=== PATIENT | male | born 1990 | race Caucasian/White ===

== ENCOUNTER 2016-11-13 01:37 | Emergency (ER) | payer SELFPAY ==
--- NOTE | 2016-11-13 02:11 | ER Document Report ---
ED General - General TRAVEL OUTSIDE OF THE [place] IN LAST 30 DAYS: No - General Chief Complaint: Insect Bite Stated Complaint: POSSIBLE INSECT BITE Time Seen by Provider: 11/13/16 02:00 - HPI Notes: Patient is a 26-year-old male who presents to the ED complaining of an insect bite to the left forehead just above his eye 3 days. Patient states that the tissue has become darker and he is noticed some redness and swelling around the area. Patient states that his eye also became red and he has a burning and pain to the eye. Patient has noticed that his left eyelid and supraorbital area is red and swollen as well. He has tried some [id number] meds with minimal relief. He denies any history of MRSA. The pain does not radiate. He still eating and drinking without any difficulties. He denies any drug allergies or significant past medical history otherwise. He has not noticed any discharge. Denies any headache, fever, head injury, neck pain/stiffness, changes in vision, URI, sore throat, chest pain, palpitations, syncope, cough, shortness of breath, wheeze, dyspnea, abdominal pain, nausea/vomiting/diarrhea, urinary retention, dysuria, hematuria, numbness/tingling, or other rash. Denies any recent illness or travel. (MADELIN BOGGS) - Related Data Allergies/Adverse Reactions: No Known Allergies Allergy (Verified 01/19/15 14:02) Past Medical History - Social History Smoking Status: Current Every Day Smoker Family History: Reviewed & Not Pertinent Renal/ Medical History: Denies: Hx Peritoneal Dialysis Psychiatric Medical History: Reports: Hx Attention Deficit Hyperactivity Disorder - Immunizations Immunizations up to date: Yes Hx Diphtheria, Pertussis, Tetanus Vaccination: Yes - Review of Systems - Review of Systems Notes: REVIEW OF SYSTEMS: CONSTITUTIONAL : Denies fever, chills, or sweats. Denies recent illness. EENT: Denies eye, ear, throat, or mouth pain or symptoms. Denies nasal or sinus congestion or discharge. Denies throat, tongue, or mouth swelling or difficulty swallowing. CARDIOVASCULAR: Denies chest pain. Denies palpitations or racing or irregular heart beat. Denies ankle edema. RESPIRATORY: Denies cough, cold, or chest congestion. Denies shortness of breath, difficulty breathing, or wheezing. GASTROINTESTINAL: Denies abdominal pain or distention. Denies nausea, vomiting , or diarrhea. Denies blood in vomitus, stools, or per rectum. Denies black, tarry stools. Denies constipation. GENITOURINARY: Denies difficulty urinating, painful urination, burning, frequency, blood in urine, or discharge. MUSCULOSKELETAL: Denies back or neck pain or stiffness. Denies joint pain or swelling. SKIN: see hpi NEUROLOGICAL: Denies confusion or altered mental status. Denies passing out or loss of consciousness. Denies dizziness or lightheadedness. Denies headache. Denies weakness or paralysis or loss of use of either side. Denies problems with gait or speech. Denies sensory loss, numbness, or tingling. ALL OTHER SYSTEMS REVIEWED AND NEGATIVE. Dictation was performed using [employer] voice recognition software (MADELIN BOGGS) Physical Exam - Vital signs Vitals: Temp Pulse Resp BP Pulse Ox 98.8 F 86 18 137/84 H 97 11/13/16 01:43 11/13/16 01:43 11/13/16 01:43 11/13/16 01:43 11/13/16 01:43 Notes: PHYSICAL EXAMINATION: GENERAL: Well-appearing, well-nourished and in no acute distress. HEAD: Atraumatic, normocephalic. EYES: Pupils equal round and reactive to light, extraocular movements intact, sclera anicteric, left conjunctiva injected without obvious discharge. + mild swelling to the left eyelid and and supraorbital area. ENT: EAC clear b/l. TM's intact b/l without erythema, fluid, or perforation. Nares patent and without discharge. oropharynx clear without exudates. No tonsilar hypertrophy or erythema. Moist mucous membranes. No sinus tenderness. NECK: Normal range of motion, supple without lymphadenopathy. No rigidity/ meningismus. LUNGS: Breath sounds clear to auscultation bilaterally and equal. No wheezes rales or rhonchi. HEART: Regular rate and rhythm without murmurs, rubs, gallops. NEUROLOGICAL: Cranial nerves grossly intact. Normal speech, normal gait. Normal sensory, motor exams PSYCH: Normal mood, normal affect. SKIN: inflamed, erythemic, 1.5cm x1cm cellulitic area with minimal necrotic tissue in the center. + tenderness. No fluid pocket or streaks. No discharge. ( MADELIN BGOGS) Course - Re-evaluation Re-evalutation: 11/13/16 03:12 Patient is an afebrile, well-hydrated, 26yo male who presents to the ED with a lt forehead cellulitis, left conjunctivitis, and left corneal abrasion. Vitals stable. Flourescein was utilized to further investigate his conjunctivitis which found the abrasion, but no ulceration or other uptake noted. Dr. Palomo ([facility]) was also in the ED and visualized the patient's infection/ eye. I will cover him with bactrim/keflex, polytrim, and ketorolac drops to use as directed. Low suspicion for any acute glaucoma, ulceration, retained corneal or lid foreign body, orbital cellulitis, penetrating globe injury, retinal detachment, sepsis, or meningitis. Patient is aware that his condition can change from initial presentation and he needs to monitor symptoms closely and seek medical attention if any acute changes. Conservative measures otherwise for symptoms. Recheck with your PCM this week. Consider consult with Ophthalmology for ongoing/worsening symptoms return to the ED with any worsening/concerning symptoms otherwise as reviewed in discharge. Patient is in agreement. (MADELIN BOGGS) - Vital Signs Vital signs: Temp Pulse Resp BP Pulse Ox 98.6 F 92 18 140/90 H 98 11/13/16 03:57 11/13/16 03:57 11/13/16 03:57 11/13/16 03:57 11/13/16 03:57 Procedures - Eye Procedure Left Time completed: 03:10 Eye Irrigated w/ Saline (ccs): 10 Alcaine Drops Administered: Yes - tetracaine Fluorescein applied: Left Slit lamp used: No - Eye Procedure Left Notes: 11/13/16 03:17 see course. (MADELIN BOGGS) Discharge - Discharge Clinical Impression: Cellulitis Qualifiers: Site of cellulitis: face Qualified Code(s): L03.211 - Cellulitis of face Conjunctivitis Qualifiers: Conjunctivitis type: acute Acute conjunctivitis type: bacterial Laterality: left Qualified Code(s): H10.32 - Unspecified acute conjunctivitis, left eye Corneal abrasion Qualifiers: Encounter type: initial encounter Laterality: left Qualified Code(s): S05.02XA - Injury of conjunctiva and corneal abrasion without foreign body, left eye, initial encounter Condition: Stable Disposition: HOME, SELF-CARE Instructions: Antibiotic Ointment Protection ([facility]), Cellulitis ([facility]), Cephalexin ([facility]), Conjunctivitis ([facility]), Corneal Abrasion ([facility]), Soap Cleansing ( [facility]) Additional Instructions: keep eyes clean Avoid scratching/touching eyes Wash hands regularly Use eye drops as directed Maintain adequate fluid intake tylenol/ibuprofen as needed over the counter cold medication as needed for symptoms F/u: with your PCM in 2-3 days for a recheck Consider consult with Ophthalmology for ongoing/worsening symptoms Return to the ED with any worsening symptoms and/or development of fever, headache, changes in vision, eye pain, worsening eye redness, redness around the eyes, purulent discharge, sore throat, facial swelling, neck pain/stiffness , chest pain, palpitations, syncope, shortness of breath, trouble breathing, abdominal pain, n/v/d, blood in stool/urine, dysuria, or other worsening symptoms that are concerning to you. Prescriptions: Cephalexin Monohydrate [Keflex 500 mg Capsule] 500 mg PO BID #20 capsule Ketorolac Tromethamine 0.45% [Acuvail 0.45% Oph Soln 0.4 ml/Dropperette] 1 drop OS QID PRN #1 bottle PRN Reason: Polymyxin B Sulf/Trimethoprim [Polytrim Eye Drops] 1 drop OD Q3H #10 ml Sulfamethoxazole/Trimethoprim [Bactrim Ds Tablet] 1 each PO BID #20 tablet Forms: Elevated Blood Pressure, Smoking Cessation Education, Return to Work Referrals: PILAR MOTTA DO [ACTIVE STAFF] - Follow up in 1 week
[2016-11-13 03:58] VITALS: BP 140/90
== END 2016-11-13 03:59 | disposition home or self-care (01) ==
LOC: ER 01:37
DX: S05.02XA Injury of conjunctiva and corneal abrasion without foreign body, left eye, initial encounter (principal); L03.211 Cellulitis of face; H10.32 Unspecified acute conjunctivitis, left eye; F17.200 Nicotine dependence, unspecified, uncomplicated; W57.XXXA Bitten or stung by nonvenomous insect and other nonvenomous arthropods, initial encounter
CPT/HCPCS: 99282

== ENCOUNTER 2017-02-07 20:21 | Emergency (ER) | payer SELFPAY ==
[2017-02-07] MEDS ORDERED: LIDOCAINE 1%/EPINEPHRINE INJ 20 ML VIAL INJ ONE (20:43)
[2017-02-07] MEDS ORDERED: DIPH/PERTUSS(ACELL)/TETANUS VAC/PF 0.5 ML SYR (>=10YO) IM ONE (20:44)
[2017-02-07] MEDS ORDERED: CEFTRIAXONE 1 GM/D5W RTU 1 GM/50 ML RTUPB IV ONE (20:44)
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
[2017-02-07 21:08] LABS: ABSOLUTE EOSINOPHILS # (AUTO) 0.1 10^3/uL (0.0-0.6); ABSOLUTE LYMPHOCYTES (AUTO) 1.9 10^3/uL (0.5-4.7); ABSOLUTE MONOCYTES (AUTO) 0.3 10^3/uL (0.1-1.4); ABSOLUTE NEUT (AUTO) 4.4 10^3/uL (1.7-8.2); BASOPHILS % (AUTO) 0.4 % (0-2); EOSINOPHILS % (AUTO) 1.5 % (0-6); HEMATOCRIT 43.4 % (37.9-51.0); HEMOGLOBIN 15.1 g/dL (13.5-17.0); HGB HCT DIFFERENCE 1.9; LYMPHOCYTES % (AUTO) 27.8 % (13-45); MEAN CORPUSCULAR HEMOGLOBIN 29.3 pg (27.0-33.4); MEAN CORPUSCULAR HGB CONC 34.9 g/dL (32.0-36.0); MEAN CORPUSCULAR VOLUME 84 fl (80-97); MONOCYTES % (AUTO) 4.6 % (3-13); RED BLOOD COUNT 5.16 10^6/uL (4.35-5.55); RED CELL DISTRIBUTION WIDTH 12.8 % (11.5-14.0); SEGMENTED NEUTROPHILS % (AUTO) 65.7 % (42-78); WHITE BLOOD COUNT 6.7 10^3/uL (4.0-10.5)
[2017-02-07 21:22] LABS: ANION GAP 9 (5-19); BLOOD UREA NITROGEN 14 mg/dL (7-20); CALCIUM 9.6 mg/dL (8.4-10.2); CARBON DIOXIDE 25 mmol/L (22-30); CHLORIDE 108 mmol/L (98-107); CREATININE RESULT 0.79 mg/dL (0.52-1.25); GLUCOSE 80 mg/dL (75-110); SODIUM 142.1 mmol/L (137-145)
[2017-02-07 21:23] LABS: POTASSIUM 3.6 mmol/L (3.6-5.0)
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
[2017-02-07] MEDS ORDERED: MORPHINE SULFATE 10 MG/ML INJ IV ONE (22:42)
[2017-02-08 00:47] VITALS: BP 125/78
== END 2017-02-08 00:40 | disposition home or self-care (01) ==
LOC: ER 20:21
PROC: 0HQ1XZZ Repair Face Skin, External Approach (ICD-10-PCS; principal; 2017-02-07)
DX: S04.52XA Injury of facial nerve, left side, initial encounter (principal); S01.81XA Laceration without foreign body of other part of head, initial encounter; X99.1XXA Assault by knife, initial encounter; Y99.0 Civilian activity done for income or pay; Z23 Encounter for immunization; F17.200 Nicotine dependence, unspecified, uncomplicated
CPT/HCPCS: 99284; 90471; 96375; 96365; 36415; 85025; 80048; 70450; 90715; 12014; J3490; J2270; J0696

== ENCOUNTER 2017-02-14 11:46 | Emergency (ER) | payer OTHER ==
--- NOTE | 2017-02-14 13:04 | ER Document Report ---
ED Suture/Wound Recheck - General Chief Complaint: Suture Removal Stated Complaint: SUTURE REMOVAL Time Seen by Provider: 02/14/17 13:00 Mode of Arrival: Ambulatory Information source: Patient, [facility] Records Notes: pATIENT HAD SUTURES PLACED LAST TUESDAY AND IS HERE FOR REMOVAL TRAVEL OUTSIDE OF THE [place] IN LAST 30 DAYS: No - HPI Patient complains to provider of: suture removal Treated in ED (days ago): 7 Previous ED treatment: Laceration repair Quality of pain: No pain Severity: Mild Pain Level: 0 Context: Injury Symptoms since procedure: No complaints Exacerbated by: Denies - Related Data Allergies/Adverse Reactions: No Known Allergies Allergy (Verified 02/14/17 11:46) Past Medical History - General Information source: Patient - Social History Smoking Status: Unknown if Ever Smoked Family History: Reviewed & Not Pertinent Renal/ Medical History: Denies: Hx Peritoneal Dialysis Psychiatric Medical History: Reports: Hx Attention Deficit Hyperactivity Disorder - Immunizations Immunizations up to date: Yes Hx Diphtheria, Pertussis, Tetanus Vaccination: Yes - Review of Systems - Review of Systems Constitutional: No symptoms reported EENT: No symptoms reported Cardiovascular: No symptoms reported Respiratory: No symptoms reported Gastrointestinal: No symptoms reported Genitourinary: No symptoms reported Physical Exam - Vital signs Vitals: Temp Pulse Resp BP Pulse Ox 98.7 F 69 17 142/85 H 98 02/14/17 11:57 02/14/17 11:57 02/14/17 11:57 02/14/17 11:57 02/14/17 11:57 Course - Vital Signs Vital signs: Temp Pulse Resp BP Pulse Ox 98.7 F 69 17 142/85 H 98 02/14/17 11:57 02/14/17 11:57 02/14/17 11:57 02/14/17 11:57 02/14/17 11:57
--- NOTE | 2017-02-14 13:22 | ER Document Report ---
HPI - HPI Patient complains to provider of: Suture removal Onset: Last week Onset/Duration: Better Quality of pain: No pain Pain Level: 0 Context: Patient is here for suture removal to left side of face. Patient was diagnosed with a facial nerve injury and was given a referral number for follow-up. Patient denies any new injury. Associated Symptoms: Other - Facial laceration Exacerbated by: Denies Relieved by: Denies Similar symptoms previously: No Recently seen / treated by doctor: Yes - ROS ROS below otherwise negative: Yes - NEURO Neurology: REPORTS: Weakness - Facial nerve injury. DENIES: Headache - DERM Skin Problems: Laceration - Sutured laceration to left congregation area Past Medical History - General Information source: Patient - Social History Smoking Status: Current Every Day Smoker Smoking Education Provided: Yes Frequency of alcohol use: None Drug Abuse: None Occupation: [employer] Family History: Reviewed & Not Pertinent Patient has suicidal ideation: No Patient has homicidal ideation: No Renal/ Medical History: Denies: Hx Peritoneal Dialysis Psychiatric Medical History: Reports: Hx Attention Deficit Hyperactivity Disorder Surgical Hx: Negative - Immunizations Immunizations up to date: Yes Hx Diphtheria, Pertussis, Tetanus Vaccination: Yes - Vertical Provider Document - CONSTITUTIONAL Agree With Documented VS: Yes Exam Limitations: No Limitations General Appearance: WD/WN - INFECTION CONTROL TRAVEL OUTSIDE OF THE [place] IN LAST 30 DAYS: No - HEENT HEENT: Normocephalic - NECK Neck: Normal Inspection - RESPIRATORY Respiratory: No Respiratory Distress O2 Sat by Pulse Oximetry: 98 - BACK Back: Normal Inspection - MUSCULOSKELETAL/EXTREMETIES Musculoskeletal/Extremeties: MAEW - NEURO Level of Consciousness: Awake, Alert, Appropriate - DERM Integumentary: Laceration - Healed laceration to left temporal area, sutures have been removed prior to this providers evaluation Course - Vital Signs Vital signs: Temp Pulse Resp BP Pulse Ox 98.7 F 69 17 142/85 H 98 02/14/17 11:57 02/14/17 11:57 02/14/17 11:57 02/14/17 11:57 02/14/17 11:57 Discharge - Discharge Clinical Impression: Visit for suture removal, Elevated blood pressure reading Condition: Stable Disposition: HOME, SELF-CARE Instructions: Suture Removal Additional Instructions: Return immediately for any new or worsening symptoms Followup with your primary care provider, call tomorrow to make a followup appointment Follow-up with a plastic surgeon for further evaluation, call tomorrow for an appointment Forms: Smoking Cessation Education, Elevated Blood Pressure Referrals: BLAS GRESHAM MD [ACTIVE STAFF] - Follow up in 3-5 days
[2017-02-14 13:37] VITALS: BP 133/75
== END 2017-02-14 13:38 | disposition home or self-care (01) ==
LOC: ER 11:46
DX: Z48.02 Encounter for removal of sutures (principal); R03.0 Elevated blood-pressure reading, without diagnosis of hypertension

== ENCOUNTER 2017-02-15 10:36 | Emergency (ER) | payer OTHER ==
[2017-02-15 12:05] VITALS: BP 141/87
--- NOTE | 2017-02-15 12:20 | ER Document Report ---
ED General - General Chief Complaint: Wound Recheck Stated Complaint: WOUND RECHECK Time Seen by Provider: 02/15/17 12:13 TRAVEL OUTSIDE OF THE [place] IN LAST 30 DAYS: No - HPI Patient complains to provider of: Left wound check Notes: Patient seen day prior for suture removal states he hit his head today on a door had dehiscence of the wound. Patient came in for evaluation. Denies any loss consciousness or other injuries. Patient is in no acute distress upon my evaluation. - Related Data Allergies/Adverse Reactions: No Known Allergies Allergy (Verified 02/15/17 10:38) Past Medical History - Social History Smoking Status: Unknown if Ever Smoked Family History: Reviewed & Not Pertinent Renal/ Medical History: Denies: Hx Peritoneal Dialysis Psychiatric Medical History: Reports: Hx Attention Deficit Hyperactivity Disorder - Immunizations Immunizations up to date: Yes Hx Diphtheria, Pertussis, Tetanus Vaccination: Yes - Review of Systems - Review of Systems Constitutional: No symptoms reported EENT: No symptoms reported Cardiovascular: No symptoms reported Respiratory: No symptoms reported Gastrointestinal: No symptoms reported Genitourinary: No symptoms reported Male Genitourinary: No symptoms reported Musculoskeletal: No symptoms reported Skin: No symptoms reported Hematologic/Lymphatic: Other - Wound evaluation Neurological/Psychological: No symptoms reported -: Yes All other systems reviewed and negative Physical Exam - Vital signs Vitals: Temp Pulse Resp BP Pulse Ox 97.9 F 49 L 18 141/87 H 99 02/15/17 12:03 02/15/17 12:03 02/15/17 12:03 02/15/17 12:03 02/15/17 12:03 Interpretation: Normal - General General appearance: Appears well, Alert - HEENT Head: Normocephalic, Other - Healing scar on the left temporal region with a small area of dehiscence approximately 2 cm Eyes: Normal Pupils: PERRL - Respiratory Respiratory status: No respiratory distress Chest status: Nontender Breath sounds: Normal Chest palpation: Normal - Cardiovascular Rhythm: Regular Heart sounds: Normal auscultation Murmur: No - Abdominal Inspection: Normal Distension: No distension Bowel sounds: Normal Tenderness: Nontender Organomegaly: No organomegaly - Back Back: Normal, Nontender - Extremities General upper extremity: Normal inspection, Nontender, Normal color, Normal ROM , Normal temperature General lower extremity: Normal inspection, Nontender, Normal color, Normal ROM , Normal temperature, Normal weight bearing. No: Marley's sign - Neurological Neuro grossly intact: Yes Cognition: Normal Orientation: AAOx4 [place] Coma Scale Eye Opening: Spontaneous [place] Coma Scale Verbal: Oriented [place] Coma Scale Motor: Obeys Commands [place] Coma Scale Total: 15 Speech: Normal Motor strength normal: LUE, RUE, LLE, RLE Sensory: Normal - Psychological Associated symptoms: Normal affect, Normal mood - Skin Skin Temperature: Warm Skin Moisture: Dry Skin Color: Normal Course - Re-evaluation Re-evalutation: 02/15/17 18:19 Steri-Strips were placed by nursing staff otherwise patient was encouraged to use triple antibiotic ointment patient will be discharged home. - Vital Signs Vital signs: Temp Pulse Resp BP Pulse Ox 97.9 F 49 L 18 141/87 H 99 02/15/17 12:03 02/15/17 12:03 02/15/17 12:03 02/15/17 12:03 02/15/17 12:03 Discharge - Discharge Clinical Impression: Wound dehiscence Disposition: HOME, SELF-CARE Instructions: Care of Steri-Strip Closure ([facility]) Additional Instructions: Your wound today looks very well-healed although it has came apart slightly. We will Place Steri-Strips over the wound please allow these just a fall off. He may cover the wound up also with a dressing or Band-Aid. Please continue to apply antibiotic ointment as available [id number]. Follow-up with your primary care physician or return to the ER for any other concerns. Forms: Return to Work
== END 2017-02-15 12:20 | disposition home or self-care (01) ==
LOC: ER 10:36
DX: T81.30XA Disruption of wound, unspecified, initial encounter (principal); W22.8XXA Striking against or struck by other objects, initial encounter
CPT/HCPCS: 99282

== ENCOUNTER 2019-05-12 11:13 | Emergency (ER) | payer SELFPAY ==
[2019-05-12] MEDS ORDERED: LIDOCAINE 5% (700 MG) TRANSDERMAL ADH..PATCH TP ONE (11:57)
[2019-05-12] MEDS ORDERED: KETOROLAC TROMETHAMINE 60 MG/2 ML SDV IM ONE (11:57)
--- NOTE | 2019-05-12 12:00 | ER Document Report ---
HPI - HPI Time Seen by Provider: 05/12/19 11:52 Pain Level: 5 Notes: Patient is a 28-year-old male no significant past medical history aside from being diagnosed with pneumonia over this past week and then being started again on antibiotics yesterday at another ED complaining of right lateral lower rib pain after a coughing fit this morning. Patient states that he does have pain to his right mid back area and does not radiate. He is otherwise able to eat and drink without difficulty. He is urinating normally and having normal bowel movements. Denies drug allergies. No history of spinal abscess, IV drug abuse, diabetes. Denies any headache, fever, neck pain, URI, sore throat, chest pain, palpitations, syncope, shortness of breath, wheeze, dyspnea, abdominal pain, nausea/vomiting/diarrhea, urinary retention, dysuria, hematuria, loss of control of bowel or bladder, numbness/tingling, saddle anesthesia, muscle paralysis/weakness, or rash. - ROS Systems Reviewed and Negative: Yes All other systems reviewed and negative - REPRODUCTIVE Reproductive: DENIES: : Past Medical History - Social History Smoking Status: Current Every Day Smoker Chew tobacco use (# tins/day): No Frequency of alcohol use: Occasional Drug Abuse: Marijuana Family History: Reviewed & Not Pertinent Patient has suicidal ideation: No Patient has homicidal ideation: No Renal/ Medical History: Denies: Hx Peritoneal Dialysis Psychiatric Medical History: Reports: Hx Attention Deficit Hyperactivity Disorder - Immunizations Immunizations up to date: Yes Hx Diphtheria, Pertussis, Tetanus Vaccination: Yes - Vertical Provider Document - CONSTITUTIONAL Agree With Documented VS: Yes Notes: PHYSICAL EXAMINATION: GENERAL: Well-appearing, well-nourished and in no acute distress. LUNGS: grossly CTAB, no retractions. Scant rhonchi. HEART: Regular rate and rhythm without murmurs, rubs, gallops. ABDOMEN: Soft, nontender, nondistended abdomen. No guarding, no rebound. Normal bowel sounds present. No CVA tenderness bilaterally. No pulsatile mass Musculoskeletal: LE's b/l: FROM to passive/active. Strength 5+/5. No deficits noted. No bony tenderness of extremities. Back: FROM to passive/active. Strength 5+/5. No vertebral point tenderness, stepoffs, or deformities. No other bony tenderness, erythema, swelling, or ecchymosis. SLR negative b/l. + reproducible tenderness to the Rt T-paraspinal mm and to the rt posterolateral ribs of that area. Mild spasming. No SI jt tenderness. No foot drop Extremities: No cyanosis, clubbing, or edema b/l. Peripheral pulses 2+. Capillary refill less than 2 seconds. NEUROLOGICAL: Normal speech, normal gait. Normal sensory, motor exams. Reflexes 2+ b/l. PSYCH: Normal mood, normal affect. SKIN: Warm, Dry, normal turgor, no rashes or lesions noted. - INFECTION CONTROL TRAVEL OUTSIDE OF THE [place] IN LAST 30 DAYS: No Course - Re-evaluation Re-evalutation: 05/12/19 Patient is an afebrile, well-hydrated, 28-year-old male who presents to the ED with right mid back pain/rib pain with current diagnosis of pneumonia from outside facility. Vitals are acceptable. PE is otherwise unremarkable for any focal neurological deficits. X-ray was unremarkable for any acute pathology. Patient was given toradol and Lidoderm patch. He has no significant tachycardia, tachypnea, or hypoxia. He is nontoxic-appearing and is tolerating p.o. without difficulties. There are no signs of infection. No other red flag symptoms noted. No other labs or imaging warranted at this time based on H&P. Low suspicion for any meningitis, fracture, expanding/ruptured AAA, cauda equina syndrome, epidural mass lesion/abscess, herniated disc causing severe spinal stenosis, pneumothorax, dissection, or other systemic infection at this time. Patient is aware that his condition can change from initial presentation and that he needs monitor symptoms closely for any acute changes. I will send him home with a prescription for Robaxin/Motrin/Tessalon. Conservative measures otherwise for symptoms. Recheck with your PCM in 3-5 days. Return to the ED with any worsening/concerning symptoms otherwise as reviewed discharge. Patient is in agreement. - Vital Signs Vital signs: Temp Pulse Resp BP Pulse Ox 98.3 F 81 20 133/82 H 94 05/12/19 11:39 05/12/19 11:39 05/12/19 11:39 05/12/19 11:39 05/12/19 11:39 Discharge - Discharge Clinical Impression: Rib pain on right side, Cough Condition: Stable Disposition: HOME, SELF-CARE Additional Instructions: Rest, Ice Maintain adequate fluid intake tylenol/ibuprofen as needed alternating every 3 hours for fever/body ache over the counter cold medication as needed for symptoms Humidified air may help Wash your hands regularly Wear a mask when coughing Light stretches daily Strength exercises as able Moist heat and massage may help F/u with your PCP in 3-5 days for a recheck Return to the ED with any worsening symptoms and/or development of fever, headache, chest pain, palpitations, syncope, shortness of breath, trouble breathing, abdominal pain, n/v/d, blood in stool/urine, loss of control of bowel/bladder, urinary retention, muscle weakness/paralysis, saddle anesthesia, numbness/tingling, or other worsening symptoms that are concerning to you. Prescriptions: Benzonatate [Tessalon Perles 100 mg Capsule] 100 mg PO Q8HP PRN #15 capsule PRN Reason: Ibuprofen [Motrin 800 mg Tablet] 800 mg PO Q8H PRN #15 tab PRN Reason: Methocarbamol [Robaxin 750 mg Tablet] 750 mg PO TID PRN #10 tablet PRN Reason: Forms: Elevated Blood Pressure Referrals: [facility] [Provider Group] - Follow up as needed
--- NOTE | 2019-05-12 12:33 | RADIOLOGY REPORT (SQ) ---
EXAM DESCRIPTION: RIBS RIGHT W/PA CHEST COMPLETED DATE/TIME: 05/12/2019 12:18 pm REASON FOR STUDY: dx pneumonia,cough,rt lateral lower rib pain COMPARISON: 01/08/2015. TECHNIQUE: Frontal view of the chest and additional views of the right ribs acquired. NUMBER OF VIEWS: Five view. LIMITATIONS: None. FINDINGS: FRONTAL CXR: No pneumothorax. No pleural effusion. No atelectasis or infiltrates. RIBS: No displaced rib fractures. No lytic or blastic bony lesions. OTHER: No other significant finding. IMPRESSION: NO PNEUMOTHORAX. NO DISPLACED RIB FRACTURES. COMMENT: SITE OF TRAUMA/COMPLAINT MARKED/STAMP COMPLETED: YES. TECHNICAL DOCUMENTATION: JOB ID: [id number] [employer]- All Rights Reserved Reading location - IP/workstation name: [email or web address]
[2019-05-12 13:02] VITALS: BP 139/86
== END 2019-05-12 12:56 | disposition home or self-care (01) ==
LOC: ER 11:13
DX: R07.81 Pleurodynia (principal); R05 Cough; M54.6 Pain in thoracic spine; F17.200 Nicotine dependence, unspecified, uncomplicated
CPT/HCPCS: 99283; 96372; 71101; J1885